=== PATIENT | male | born 1950 | race Caucasian/White ===

== ENCOUNTER 2019-05-22 06:40 | Emergency (ER) | payer BC ==
[~2019-05-22] VITALS: Ht 177.8 cm; Wt 93.0 kg
--- NOTE | 2019-05-22 07:06 | NUR ---
MD AT BEDSIDE FOR HX AND PHYSICAL
[2019-05-22 07:27] VITALS: BP 129/86
--- NOTE | 2019-05-22 07:28 | NUR ---
Patient discharged to home in stable conditon. Written and verbal after care instructions given. Patient verbalizes understanding of instructions. Pt left Er w/ steady gait.
== END 2019-05-22 07:28 | disposition home or self-care (01) ==
LOC: ER 06:40
DX: S09.90XA Unspecified injury of head, initial encounter (principal); R55 Syncope and collapse; M25.511 Pain in right shoulder; I10 Essential (primary) hypertension; M54.12 Radiculopathy, cervical region; F10.10 Alcohol abuse, uncomplicated; Z79.899 Other long term (current) drug therapy
CPT/HCPCS: A4663

== ENCOUNTER 2019-05-25 09:44 | Emergency (ER) | payer BC ==
[~2019-05-25] VITALS: Ht 177.8 cm; Wt 93.0 kg
--- NOTE | 2019-05-25 10:16 | NUR ---
Patient discharged to home in stable conditon & brisk steady gait. Written and verbal after care instructions given. Patient verbalizes understanding & compliance of instructions.
== END 2019-05-25 10:16 | disposition home or self-care (01) ==
LOC: ER 09:44
DX: M25.511 Pain in right shoulder (principal); R55 Syncope and collapse; I10 Essential (primary) hypertension; Z79.899 Other long term (current) drug therapy; W19.XXXA Unspecified fall, initial encounter; Y93.89 Activity, other specified; Y92.89 Other specified places as the place of occurrence of the external cause; Y99.8 Other external cause status
CPT/HCPCS: A4663